=== PATIENT | male | born 1985 | race Caucasian/White ===

== ENCOUNTER 2023-03-28 09:31 | Day surgery (SDC) | payer BC ==
[2023-03-28 09:55] LABS: HEMATOCRIT 48.4 % (38.4-49.7); HEMOGLOBIN 16.3 g/dL (12.9-16.9); MEAN CORPUSCULAR HEMOGLOBIN 28.3 pg (31.6-35.5); MEAN CORPUSCULAR HGB CONC 33.7 g/dL (31.6-35.5); RED BLOOD CELL COUNT 5.76 M/uL (4.14-5.76)
[2023-03-28 10:15] LABS: A/G RATIO 1.1 (1.2-2.2); ALANINE AMINOTRANSFERASE,ALT 23 U/L (12-78); ALBUMIN 4.1 g/dL (3.4-5.0); ALKALINE PHOSPHATASE 41 U/L (46-116); ANION GAP 8.5 mmol/L (5.0-14.0); ASPARTATE AMNIOTRANSFERASE,AST 19 U/L (15-37); BILIRUBIN TOTAL 0.6 mg/dL (0.2-1.0); BLOOD UREA NITROGEN,BUN 11 mg/dL (7-18); CALCIUM 8.3 mg/dL (8.5-10.1); CARBON DIOXIDE,CO2 29 mmol/L (21-32); CHLORIDE,CL 103 mmol/L (100-108); CREATININE 0.9 mg/dL (0.8-1.3); ESTIMATED GFR 112 mL/min (>60); GLUCOSE RANDOM 92 mg/dL (74-106); POTASSIUM,K 3.6 mmol/L (3.6-5.2); SODIUM,NA 140 mmol/L (140-148)
[2023-03-28] MEDS: Nozin Nasal Sanitizer NASBOTH ONE (10:17)
[2023-03-28] MEDS: Scopalamine 1mg/3day Transdermal Patch TOP SCH (10:17)
[2023-03-28] MEDS: Lactated Ringers 1,000 ML IV SCH (10:18)
[2023-03-28] MEDS ORDERED: Midazolam 1 MG/ML 2 ML SDV ONE (11:20)
[2023-03-28] MEDS ORDERED: Dexamethasone 4 MG/ML SDV ONE (11:21)
[2023-03-28] MEDS ORDERED: fentaNYL 250 MCG/5 ML SDV ONE ×3 (11:21→12:53)
[2023-03-28] MEDS ORDERED: Ondansetron 4 MG/2 ML SDV ONE (11:21)
[2023-03-28] MEDS ORDERED: Propofol 200 MG/20 ML SDV ONE ×2 (11:21→13:45)
[2023-03-28] MEDS: ceFAZolin 1 GM in Premix Bag 1 BAG IV ONE (11:35)
[2023-03-28] MEDS ORDERED: Lactated Ringers 1,000 ML ONE (12:25)
[2023-03-28] MEDS: Bupivacaine 0.5% 30 ML SDV ONE (12:33)
[2023-03-28] MEDS ORDERED: Ketorolac 30 MG/ML SDV ONE (13:50)
[2023-03-28] MEDS: Acetaminophen/oxyCODONE 325-5 MG Tab PO PRN (15:58)
== END 2023-03-28 16:30 | disposition home or self-care (01) ==
LOC: JP.SDS 09:31
PROVIDERS: ATTEND Specialist
DX: S83.212A Bucket-handle tear of medial meniscus, current injury, left knee, initial encounter (principal); S83.512A Sprain of anterior cruciate ligament of left knee, initial encounter; Z87.891 Personal history of nicotine dependence; X58.XXXA Exposure to other specified factors, initial encounter; Z88.8 Allergy status to other drugs, medicaments and biological substances
CPT/HCPCS: 29882; 29888; 36415; 80053; 85027; A9270; C1713; J0665; J0690; J1100; J1885; J2250; J2405; J2704; J3010; J7120